=== PATIENT | female | born 1965 | race Caucasian/White ===

== ENCOUNTER → 2018-12-22 15:09 | Outpatient (CLI) | payer OTHER, SELFPAY ==
[2018-12-25 18:17] LABS: Rubeola Measles IgG < 25.00 AU/mL (< 25.00)
== END ==
PROVIDERS: PCP Physician Assistant; Visit Provider Physician Assistant
DX: Z20.828 Contact with and (suspected) exposure to other viral communicable diseases (principal)
CPT/HCPCS: 36415; 86765

== ENCOUNTER → 2019-04-07 08:39 | Outpatient (CLI) | payer OTHER, SELFPAY ==
[2019-04-07 09:58] LABS: Alanine Aminotransferase 30 IU/L (9-52); Albumin 5.1 g/dL (3.5-5.0); Albumin Globulin Ratio 1.5 (1.0-2.8); Alkaline Phosphatase 78 U/L (38-126); Aspartate Aminotransferase 31 IU/L (14-36); Bilirubin Total 0.7 mg/dL (0.2-1.3); Blood Urea Nitrogen 15 mg/dL (7-17); Calcium 10.1 mg/dL (8.4-10.2); Carbon Dioxide 29 mmol/L (22-32); Chloride 99 mmol/L (98-107); Cholesterol 210 mg/dL (140-199); Estimated Glomerular Filt Rate > 60.0 mL/min (>60); Globulin 3.5 g/dL (1.7-4.1); Glucose 114 mg/dL (70-100); HDL Cholesterol 70 mg/dL (40-60); HEMOLYSIS < 15 (0-50); LDL Cholesterol Calculated 111 mg/dL (<100); Potassium 4.2 mmol/L (3.4-5.1); Sodium 140 mmol/L (137-145); Total Protein 8.6 g/dL (6.3-8.2); Triglycerides 144 mg/dL (35-150)
[2019-04-07 10:00] LABS: Creatinine Urine Random 30.2 mg/dL
[2019-04-07 10:07] LABS: Microalbumi Creatinin Ratio Ur 19.8 ug/mg CR (<30); Microalbumin Urine Random < 0.6 mg/dL (0-1.6)
== END ==
PROVIDERS: PCP Physician Assistant; Visit Provider Physician Assistant
DX: I10 Essential (primary) hypertension (principal); Z87.448 Personal history of other diseases of urinary system; Z90.711 Acquired absence of uterus with remaining cervical stump
CPT/HCPCS: 36415; 80053; 80061; 82043; 82570

== ENCOUNTER → 2020-10-15 08:09 | Outpatient (CLI) | payer OTHER, SELFPAY ==
[2020-10-15 09:24] LABS: Add Manual Diff / Slide Review NO; Basophils Absolute Auto 100 /uL (0-100); Basophils Percent Auto 1.1 % (0-2); Eosinophils Absolute Auto 300 /uL (0-450); Eosinophils Percent Auto 5.7 % (2-4); Hematocrit 39.4 % (36-46); Hemoglobin 13.7 g/dL (12.0-16.0); Lymphocytes Absolute Auto 2100 /uL (1100-4500); Mean Corpuscular HGB Conc 34.9 % (30-36); Mean Corpuscular Hemoglobin 31.2 PG (26-34); Mean Corpuscular Volume 89.3 fL (80-100); Monocytes Absolute Auto 400 /uL (0-900); Monocytes Percent Auto 7.5 % (3-14); Neutrophils Absolute Auto 2000 /uL (1500-7000); Neutrophils Percent Auto 41.7 % (50-75); Platelet Count 281 X10^3/uL (150-400); Red Blood Cell Count 4.41 X10^6/uL (4.0-5.2); Red Cell Distribution Width 13.2 % (11.6-14.8); White Blood Cell Count 4.7 X10^3/uL (4.5-11.0)
[2020-10-15 09:36] LABS: Hemoglobin A1C% w Est Avg Glu 5.1 % (4.0-6.0)
[2020-10-15 10:27] LABS: Alanine Aminotransferase 22 IU/L (<35); Albumin 4.1 g/dL (3.5-5.0); Albumin Globulin Ratio 1.3 (1.0-2.8); Alkaline Phosphatase 75 U/L (38-126); Aspartate Aminotransferase 25 IU/L (14-36); BUN Creatinine Ratio 25.5 (6-22); Bilirubin Total 0.2 mg/dL (0.2-1.3); Blood Urea Nitrogen 12 mg/dL (7-17); Calcium 9.2 mg/dL (8.4-10.2); Carbon Dioxide 31 mmol/L (22-32); Chloride 103 mmol/L (98-107); Cholesterol 158 mg/dL (140-199); Estimated Glomerular Filt Rate > 60.0 mL/min (>60); Globulin 3.2 g/dL (1.7-4.1); Glucose 103 mg/dL (70-100); HDL Cholesterol 60 mg/dL (40-60); HEMOLYSIS < 15 (0-50); LDL Cholesterol Calculated 77 mg/dL (<100); Sodium 141 mmol/L (137-145); Total Protein 7.3 g/dL (6.3-8.2); Triglycerides 103 mg/dL (35-150)
[2020-10-15 10:40] LABS: Free T3, Triiodothyronine Free 3.76 pg/mL (2.77-5.27); Free T4, Direct Thyroxine 0.97 ng/dL (0.78-2.19)
[2020-10-15 11:33] LABS: Creatinine Urine Random 77.8 mg/dL; Protein (Total) Urine Random 6 mg/dL (0-12); Protein Creatinine Ratio Urine 0.07 GRAM/24H
[2020-10-15 11:44] LABS: Microalbumin Urine Random < 0.6 mg/dL (0-1.6)
== END ==
PROVIDERS: Referring Provider Nurse Practitioner; Visit Provider Nurse Practitioner
DX: Z00.00 Encounter for general adult medical examination without abnormal findings (principal); N05.9 Unspecified nephritic syndrome with unspecified morphologic changes; D70.9 Neutropenia, unspecified; D63.1 Anemia in chronic kidney disease; R80.9 Proteinuria, unspecified; I10 Essential (primary) hypertension; Z87.448 Personal history of other diseases of urinary system; N28.9 Disorder of kidney and ureter, unspecified; E78.5 Hyperlipidemia, unspecified; R73.9 Hyperglycemia, unspecified
CPT/HCPCS: 36415; 80053; 80061; 82043; 82570; 83036; 84156; 84439; 84443; 84481; 85025

== ENCOUNTER → 2022-01-15 12:36 | Outpatient (CLI) | payer OTHER, SELFPAY ==
[2022-01-15 13:03] LABS: Hematocrit 43.1 % (36-46); Hemoglobin 14.5 g/dL (12.0-16.0); Mean Corpuscular HGB Conc 33.7 % (30-36); Mean Corpuscular Hemoglobin 30.2 PG (26-34); Mean Corpuscular Volume 89.6 fL (80-100); Platelet Count 356 X10^3/uL (150-400); Red Blood Cell Count 4.81 X10^6/uL (4.0-5.2); Red Cell Distribution Width 13.5 % (11.6-14.8); White Blood Cell Count 7.1 X10^3/uL (4.5-11.0)
[2022-01-15 13:33] LABS: Alanine Aminotransferase 28 IU/L (<35); Albumin 4.5 g/dL (3.5-5.0); Albumin Globulin Ratio 1.6 (1.0-2.8); Alkaline Phosphatase 76 U/L (38-126); Aspartate Aminotransferase 28 IU/L (14-36); BUN Creatinine Ratio 35.2 (6-22); Bilirubin Total 0.4 mg/dL (0.2-1.3); Blood Urea Nitrogen 19 mg/dL (7-17); Calcium 9.1 mg/dL (8.4-10.2); Carbon Dioxide 29 mmol/L (22-32); Chloride 101 mmol/L (98-107); Cholesterol 196 mg/dL (140-199); Estimated Glomerular Filt Rate > 60 mL/min (>60); Globulin 2.9 g/dL (1.7-4.1); Glucose 98 mg/dL (70-100); HDL Cholesterol 73 mg/dL (40-60); HEMOLYSIS < 15 (0-50); LDL Cholesterol Calculated 83 mg/dL (<100); Potassium 4.4 mmol/L (3.4-5.1); Sodium 136 mmol/L (137-145); Total Protein 7.4 g/dL (6.3-8.2); Triglycerides 201 mg/dL (35-150)
[2022-01-15 13:49] LABS: Free T3, Triiodothyronine Free 3.52 pg/mL (2.77-5.27); Free T4, Direct Thyroxine 0.89 ng/dL (0.78-2.19)
[2022-01-15 14:03] LABS: Thyroid Stimulating Hormone 0.829 uIU/mL (0.47-4.68)
[2022-01-15 14:58] LABS: Creatinine Urine Random 144.3 mg/dL
[2022-01-15 15:05] LABS: Microalbumi Creatinin Ratio Ur 11.7 ug/mg CR (<30); Microalbumin Urine Random 1.7 mg/dL (0-1.6)
[2022-01-16 19:32] LABS: Hep C Virus Ab w/Reflex Quant NEGATIVE s/c (NEGATIVE)
== END ==
PROVIDERS: Referring Provider Nurse Practitioner; Visit Provider Nurse Practitioner
DX: R73.9 Hyperglycemia, unspecified (principal); E78.2 Mixed hyperlipidemia; N28.9 Disorder of kidney and ureter, unspecified; I10 Essential (primary) hypertension; Z00.00 Encounter for general adult medical examination without abnormal findings; Z11.59 Encounter for screening for other viral diseases
CPT/HCPCS: 36415; 80053; 80061; 82043; 82570; 84439; 84443; 84481; 85027; 86803

== ENCOUNTER 2022-03-21 14:30 | Outpatient (RCR) | payer OTHER, SELFPAY ==
--- NOTE | 2022-03-24 11:26 | ST.OPIE ---
Visit Care Team Role Provider Type CARLI Sam Attending Provider Advanced Airplane Pilot Family Provider Primary Care Provider Referring Provider Specialty: [facility] Practice Address: [address] [place] [address], [facility] Email: [email or web address] Speech-Language Pathology Initial Evaluation SKY CAP Adult Cognitive Linguistic Eval Start: 03/21/22 15:04 Freq: Status: Active Protocol: Document 03/21/22 14:30 LNK (Rec: 03/24/22 11:26 LNK [id number]) Adult Cognitive Linguistic Evaluation Session Time Visit Start Time 14:30 Visit Stop Time 15:30 Total Visit Minutes [address] Jennifer Lowe Reason for Referral s/p CVA Setting Assessment Location Outpatient Care Visit Type Note Type Initial evaluation Patient Information Identification Type Name,Date of Patient History Pt was seen for an evaluation following a possible acute infarct in the left dosal bill. Pt was treated at [facility] in [place]. Additional white matter changes were observed in MRI. Pt was discharged from [facility] 10/28/21. Pt presents to determine what, if any, affects from the CVA are present in speech/language or cognition. Previous Therapy Previous Speech-Language Therapy No Subjective Patient Report Pt presented as alert, oriented with no obvious speech/language deficits. Assessment Oral Motor Examination Completed No: Informal observation of OM structures/function as WNL Informal Assessment Receptive Language Normal Yes Expressive Language Normal Yes Pragmatic Language Normal Yes Speech Normal Yes Cognition Normal Yes Formal Assessment Standardized Test/Screener Type [facility] Mental Status (UMS) Administration Complete Results Pt reported no word finding difficulty, no slurred speech and no halting speaking pattern. After a brief conversation with interview questions regarding presentation or lack of pt's perceived difficulties, the SLUMS was administered. The results of the SLUMS indicated a score of 30/30. She presented with story memory, mental calculation, divergent naming, clock drawing and delayed memory to be WNL. Conversational speech/language indicated no deficits. Findings/Results Language Function Within normal limits Cognitive Function Within normal limits Plan of Care Speech-Language Treatment No Patient/Caregiver Education Described results of evaluation,Patient expressed understanding of evaluation, Patient expressed agreement with goals and treatment plans Discharge Recommendations Home
== END 2022-03-26 09:30 ==
LOC: SP 14:30
PROVIDERS: Family Provider Nurse Practitioner; PCP Nurse Practitioner; Referring Provider Nurse Practitioner; Visit Provider Nurse Practitioner
DX: I63.9 Cerebral infarction, unspecified (principal); R41.89 Other symptoms and signs involving cognitive functions and awareness
CPT/HCPCS: 92523

== ENCOUNTER 2022-04-30 14:30 | Outpatient (RCR) | payer OTHER, SELFPAY ==
--- NOTE | 2022-03-26 14:25 | PT.OIE ---
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 Elevated blood sugar Foot pain (~2004) Headache (~1999) Hyperlipidemia Kidney disease (~1993) Left pontine stroke Ovarian cyst (~2017) Proteinuria (~1993) Shoulder pain (~2017) Skin mole Stressful workplace Vertigo (~2016) Past Surgical History (Last Reviewed 02/13/22 @ 10:52 by CARLI Sam) Anesthesia History of bunionectomy (~2004) History of section History of partial hysterectomy (~2017) Status post biopsy of kidney Visit Care Team Role Provider Type CARLI Sam Attending Provider Advanced Cemetery Manager Family Provider Primary Care Provider Referring Provider Specialty: [facility] Practice Address: [address] [place] [address] Email: [email or web address] Physical Therapy Initial Evaluation PT-OP-A Visit Information Start: 03/25/22 13:22 Freq: Status: Active Protocol: Document 03/26/22 13:00 [facility] (Rec: 03/26/22 14:23 [facility] [id number]) Out-Patient Physical Therapy Visit Information Visit Information Visit Type Initial Evaluation Visit Start Time 13:00 Visit Stop Time 13:55 Total Visit Minutes 55 Visit Number 1 Number of AUTOMATIC FURNACE OPERATOR Visits 0 PT-OP-B Current Condition Start: 03/25/22 13:22 Freq: Status: Active Protocol: Document 03/26/22 13:00 [facility] (Rec: 03/26/22 14:23 [facility] [id number]) Current Condition History of Current Condition Onset Date October Current Complaints R knee History of Current Condition Pt had a mild stroke in October ( notes it was mild). She had an injury to her R Knee after falling donw a hill in [place] when having the stroke. They did Xrays and US and nothing looks broken, but it was swollen and she had difficulty wt bearing for a month. It started acting up more the past couple days. It throws off her gait. It seems best when she walks. [place]25 [place] and tried 2 miles but her knee gets more painful. Denies any lingering affects from the stroke. She saw NETWORK MANAGER for eval and was DC. Pt was diagnosed w/vertigo 4-5 years ago and did PT and did self leila at home to maintain. Since CVA, she has had inc dizziness and when seh bends over or occ when rolling in bed. She has tried her self maneuver and it has helped. She has bunions on her feet and has history of surgery of L foot. She has had some knee pain in R knee prior to this. R bunion isn't painful. Pt has diagnosis of fibromyalgia and has pain in upper back and does chiro, massage and stretching by the ocean and that all helps a lot. It was really dehibilitating until seeing the chiro. Prior to this, pt was walking 2 miles a day to walk dog and go to the beach. Pt is in a car a lot and having to walk in the [place]. Work is currently working on a safety plan for her to return. She typically wears tennis shoes and wears a lot of shoe-boots (like jackie shoes). Feels like knee cap shifts, and that catches and is painful when this happens and brace helps this. Notes occ when turning, loses balance but unsure if that is dizzines or knee. has been doing some [facility] stroke rehab and has trouble w/EC balance. Pt's initial symptoms of stroke were paranoia, confusion, vision changes. Pt feels like it all resolved. Pt fell during CVA when she was concerned she was being followed and hid behind a tree and fell down a hill. New callus on lat foot around 5th met head on L. It is painful when first set on it and it feels like a pin and a really sharp pain. Prior Treatments and Tests Xray and US; wears brace( elastic sleeve) Treatment Goals Patient/Caregiver Goals Get back to normal walking ( improve gait pattern and return to 2 miles); Figure out if more is going on with knee and if she needs to see a specialist. PT-OP-C Subjective Start: 03/25/22 13:22 Freq: Status: Active Protocol: Document 03/26/22 13:00 [facility] (Rec: 03/26/22 14:23 [facility] [id number]) Patient Questionnaires Lower Extremity Functional Scale LEFS Score 61/80 OP-PT Pain Assessment Location R knee Pain Location Details R med knee Intensity 9 Scale Used worst Description Sharp Description- Other lock up Frequency Intermittent Other Pain Aggravating Factors uneven ground, hills, walking too long, squatting, sit long then get up Pain Alleviating Factors Cold Other Pain Alleviating Factors daily walk PT-OP-D Balance Start: 03/25/22 13:22 Freq: Status: Active Protocol: Document 03/26/22 13:00 [facility] (Rec: 03/26/22 14:23 [facility] [id number]) Balance Tests Single Limb Standing Single Limb- Right >30 sec EO, EC 2 sec Single Limb- Left >30 sec EO, EC 5sec PT-OP-F Manual Assessment Start: 03/26/22 14:23 Freq: Status: Active Protocol: Document 03/26/22 13:00 [facility] (Rec: 03/26/22 14:25 [facility] [id number]) Manual Assessments Soft Tissue Assessment Soft Tissue Mobility Assessment tenderness med patella region only Other Manual Assessments Other Manual Assessments B rear foot valgus and rotaion of R remure and tibia, bunion R, collapsed arches B, hyperextends in standin PT-OP-G Mobility & Gait Start: 03/25/22 13:22 Freq: Status: Active Protocol: Document 03/26/22 13:00 [facility] (Rec: 03/26/22 14:23 [facility] [id number]) OP Gait Assessment Comments Gait Comments Adducts B and inc pronation B PT-OP-J Posture/Palpation/Skin Start: 03/25/22 13:22 Freq: Status: Active Protocol: Document 03/26/22 13:00 [facility] (Rec: 03/26/22 14:23 [facility] [id number]) Posture Evaluation Donnie Postural Classification System Lumbar Protective Mechanism Left AP 1 Lumbar Protective Mechanism Right AP 3 Lumbar Protective Mechanism Left PA 2 Lumbar Protective Mechanism Right PA 2 PT-OP-K Range of Motion Start: 03/26/22 14:23 Freq: Status: Active Protocol: Document 03/26/22 13:00 [facility] (Rec: 03/26/22 14:25 [facility] [id number]) Knee Goniometric Range of Motion Knee Right Flexion Active (degrees) 140 Extension Active (degrees) 0 Comments tight w/flex Left Flexion Active (degrees) 142 Hyper-Extension Active 4 PT-OP-L Special Tests Start: 03/25/22 13:22 Freq: Status: Active Protocol: Document 03/26/22 13:00 [facility] (Rec: 03/26/22 14:23 [facility] [id number]) Special Tests Knee Special Tests Hughston Pica Test Test Results R positive for pain-not notable for clicking though Straight Leg Raise Test Results 95 deg L, 92 R Preston Test Results WNL B Susan's Test Test Results neg R Cornelius's Compression Test Results neg R Apley's Compression Test Results neg R Thessaly Test 20 Degrees Test Results didn't hurt-but feels weak like it could click out Carlos Test Test Results neg R Rich Chondromalacia Test Results no pain w/ext Todd's Test Results neg R Posterior Draw Test Results neg R Varus- 25 Degrees Test Results neg R Valgus- 25 Degrees Test Results neg R PT-OP-M Strength Start: 03/25/22 13:22 Freq: Status: Active Protocol: Document 03/26/22 13:00 [facility] (Rec: 03/26/22 14:23 [facility] [id number]) Hip Strength Hip Manual Muscle Testing Right Flexion (L2) 4- Good- Extension (S1) 4 Good Abduction 4 Good Adduction 4 Good External Rotation 4- Good- Internal Rotation 4+ Good+ Comments pain IR Left Flexion (L2) 4- Good- Extension (S1) 4 Good Abduction 4 Good Adduction 5 Normal External Rotation 4- Good- Internal Rotation 4+ Good+ Knee Strength Knee Manual Muscle Testing Right Flexion (S2) 5 Normal Extension (L3) 4 Good Left Flexion (S2) 5 Normal Extension (L3) 4 Good Ankle/Foot Strength Ankle and Foot Manual Muscle Testing Right Dorsiflexion (L4) 5 Normal Plantarflexion (S1) 5 Normal Comments more difficult but abl eto do 20 heel raises Left Dorsiflexion (L4) 5 Normal Plantarflexion (S1) 5 Normal Comments 20 heel raises B PT-OP-Q Treatments Start: 03/25/22 13:22 Freq: Status: Active Protocol: Document 03/26/22 13:00 [facility] (Rec: 03/26/22 14:23 [facility] [id number]) Self-Care/Home Management Treatment Education Other Education Edu on anatomy of knee and what plica is and how that could be what was injured based on location and pain w/ testing. Edu that ligaments feel stable. Discussed how PT can help manually and w/ exercises to stabilize PT-OP-T Assessment and Plan Start: 03/25/22 13:22 Freq: Status: Active Protocol: Document 03/26/22 13:00 [facility] (Rec: 03/26/22 14:23 [facility] [id number]) Physical Therapy Assessment Goals activity Missile Technician Goal (LTG) Pt will be able to stand comfortably after sitting for long periods and w/squatting LTG Duration 05/21 strength Short Term Goal (STG) Pt will be indep w/HEP STG Duration 04/26 Missile Technician Goal (LTG) Pt will score at lest 3/5 LPm and 5/5 on all LE MMT to show imrpoved strengtha nd stability in order to dec instance of pain. LTG Duration 05/21 walking Short Term Goal (STG) Pt will be able to inc walking to 1 mile w/o inc pain. STG Duration 04/26 Missile Technician Goal (LTG) Pt will be able her typical 2 mile walks and walk on uneven surfaces LTG Duration 05/21 Assessment Summary Assessment Pt presents w/R knee pain after a fall when she had a mild CVA. She has history of some mild knee pain but it is worse now and it limits her walking distance and she is concerned about her return to work on uneven surfaces. She has been exercising daily and very motivated to follow PT exercises to get better. She did show pain along palpation by med plica and pain w/ Hughston's plica test which indicate possible plica pathology. She is weak and shows gait deviations which may be affecting her pain especially w/walking. Pt would beneift from PT to improve gait and overall mobility. Physical Therapy Plan Frequency and Duration Frequency of Treatment 1-2x/week Duration of treatment (weeks) 8 Plan of Care Start Date 03/26/22 Plan of Care End Date 05/21/22 Therapeutic Interventions Therapeutic Interventions Aquatic Therapy,Balance Training,Gait Training,Home Exercise Program,Joint Mobilizations,Manual Therapy, Neuromuscular Re-education, Patient/Caregiver Education, Self-Care/Home Management,Soft Tissue Mobilization,Taping, Therapeutic Activities, Therapeutic Exercises Modalities Cold Pack/Ice Massage,Electric Stimulation,Hot Packs, Infrared Therapy,Ultrasound Next Visit Focus/Plan Next Note Type Treatment Note Next Visit Plan mini squat training, KT tape for swelling, sidestep w/tband , bridge, glute strenthening for HEP, manual for tibfem mobility
--- NOTE | 2022-03-26 14:26 | PT.OPPOC ---
Physical, Occupational & Speech Therapy At [facility] Current Diagnoses Pain in right knee (03/26/22) Other symptoms and signs involving the musculoskeletal system (03/26/22) Visit Care Team Role Provider Type CARLI Sam Attending Provider Advanced Drive Shaft And Steering Post Repairer Family Provider Primary Care Provider Referring Provider Specialty: Family Practice Address: [address] [place] [address], [facility] Email: [email or web address] Plan Of Care PT-OP-T Assessment and Plan Start: 03/25/22 13:22 Freq: Status: Active Protocol: Document 03/26/22 13:00 [facility] (Rec: 03/26/22 14:23 [facility] [id number]) Physical Therapy Assessment Goals activity Senior Care Goal (LTG) Pt will be able to stand comfortably after sitting for long periods and w/squatting LTG Duration 05/21 strength Short Term Goal (STG) Pt will be indep w/HEP STG Duration 04/26 Senior Care Goal (LTG) Pt will score at lest 3/5 LPm and 5/5 on all LE MMT to show imrpoved strengtha nd stability in order to dec instance of pain. LTG Duration 05/21 walking Short Term Goal (STG) Pt will be able to inc walking to 1 mile w/o inc pain. STG Duration 04/26 Maintainer Sewer And Waterworks Goal (LTG) Pt will be able her typical 2 mile walks and walk on uneven surfaces LTG Duration 05/21 Assessment Summary Assessment Pt presents w/R knee pain after a fall when she had a mild CVA. She has history of some mild knee pain but it is worse now and it limits her walking distance and she is concerned about her return to work on uneven surfaces. She has been exercising daily and very motivated to follow PT exercises to get better. She did show pain along palpation by med plica and pain w/ Hughston's plica test which indicate possible plica pathology. She is weak and shows gait deviations which may be affecting her pain especially w/walking. Pt would beneift from PT to improve gait and overall mobility. Physical Therapy Plan Frequency and Duration Frequency of Treatment 1-2x/week Duration of treatment (weeks) 8 Plan of Care Start Date 03/26/22 Plan of Care End Date 05/21/22 Therapeutic Interventions Therapeutic Interventions Aquatic Therapy,Balance Training,Gait Training,Home Exercise Program,Joint Mobilizations,Manual Therapy, Neuromuscular Re-education, Patient/Caregiver Education, Self-Care/Home Management,Soft Tissue Mobilization,Taping, Therapeutic Activities, Therapeutic Exercises, Vestibular Rehabilitation Modalities Cold Pack/Ice Massage,Electric Stimulation,Hot Packs, Infrared Therapy,Ultrasound Next Visit Focus/Plan Next Note Type Treatment Note Next Visit Plan mini squat training, KT tape for swelling, sidestep w/tband , bridge, glute strenthening for HEP, manual for tibfem mobility Plan of Care Dates Plan of Care Start Date 03/26/22 Plan of Care End Date 05/21/22 Electronically Signed by: Lidia Ashton, PT 03/26/22 [id number] If you are in agreement with this Plan of Care, please return a signed and dated copy. I have reviewed this Plan of Care and certify that the skilled therapy services above are required to meet the patient?s needs. Physician Signature Date Printed Name and Credentials Clinical Instructor Signature Printed Name and Credentials
--- NOTE | 2022-03-31 15:52 | PT.OTN ---
Current Diagnoses Pain in right knee (03/31/22) Other symptoms and signs involving the musculoskeletal system (03/31/22) Physical Therapy Treatment Note PT-OP-A Visit Information Start: 03/25/22 13:22 Freq: Status: Active Protocol: Document 03/31/22 14:41 AMB (Rec: 03/31/22 15:52 AMB [id number]) Out-Patient Physical Therapy Visit Information Visit Information Visit Type Treatment Note Visit Start Time 14:30 Visit Stop Time 15:15 Total Visit Minutes 45 Visit Number 2 PT-OP-B Current Condition Start: 03/25/22 13:22 Freq: Status: Active Protocol: Document 03/26/22 13:00 LR (Rec: 03/26/22 14:23 [facility] [id number]) Current Condition History of Current Condition Onset Date October Current Complaints R knee History of Current Condition Pt had a mild stroke in October ( notes it was mild). She had an injury to her R Knee after falling donw a hill in [place] when having the stroke. They did Xrays and US and nothing looks broken, but it was swollen and she had difficulty wt bearing for a month. It started acting up more the past couple days. It throws off her gait. It seems best when she walks. [place] walks 5x/ week on the beach [place] .25 mile and tried 2 miles but her knee gets more painful. Denies any lingering affects from the stroke. 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 Pt was diagnosed w/vertigo 4-5 years ago and did PT and did self leila at home to maintain. Since CVA, she has had inc dizziness and when seh bends over or occ when rolling in bed. She has tried her self maneuver and it has helped. She has bunions on her feet and has history of surgery of L foot. She has had some knee pain in R knee prior to this. R bunion isn't painful. Pt has diagnosis of fibromyalgia and has pain in upper back and does chiro, massage and stretching by the ocean and that all helps a lot. It was really dehibilitating until seeing the chiro. Prior to this, pt was walking 2 miles a day to walk dog and go to the beach. Pt is in a car a lot and having to walk in the [place]. Work is currently working on a safety plan for her to return. She typically wears tennis shoes and wears a lot of shoe-boots (like jackie shoes). Feels like knee cap shifts, and that catches and is painful when this happens and brace helps this. Notes occ when turning, loses balance but unsure if that is dizzines or knee. has been doing some Youtube stroke rehab and has trouble w/EC balance. Pt's initial symptoms of stroke were paranoia, confusion, vision changes. Pt feels like it all resolved. Pt fell during CVA when she was concerned she was being followed and hid behind a tree and fell down a hill. New callus on lat foot around 5th met head on L. It is painful when first set on it and it feels like a pin and a really sharp pain. Prior Treatments and Tests Xray and US; wears brace( elastic sleeve) Treatment Goals Patient/Caregiver Goals Get back to normal walking ( improve gait pattern and return to 2 miles); Figure out if more is going on with knee and if she needs to see a specialist. PT-OP-C Subjective Start: 03/25/22 13:22 Freq: Status: Active Protocol: Document 03/31/22 14:41 AMB (Rec: 03/31/22 15:52 AMB [id number]) OP-PT Subjective Patient Comments Patient Comments Pt woke up feeling pretty stiff this morning. PT-OP-D Balance Start: 03/25/22 13:22 Freq: Status: Active Protocol: Document 03/26/22 13:00 [facility] (Rec: 03/26/22 14:23 [facility] [id number]) Balance Tests Single Limb Standing Single Limb- Right >30 sec EO, EC 2 sec Single Limb- Left >30 sec EO, EC 5sec PT-OP-F Manual Assessment Start: 03/26/22 14:23 Freq: Status: Active Protocol: Document 03/26/22 13:00 [facility] (Rec: 03/26/22 14:25 [facility] [id number]) Manual Assessments Soft Tissue Assessment Soft Tissue Mobility Assessment tenderness med patella region only Other Manual Assessments Other Manual Assessments B rear foot valgus and rotaion of R remure and tibia, bunion R, collapsed arches B, hyperextends in standin PT-OP-G Mobility & Gait Start: 03/25/22 13:22 Freq: Status: Active Protocol: Document 03/26/22 13:00 [facility] (Rec: 03/26/22 14:23 [facility] [id number]) OP Gait Assessment Comments Gait Comments Adducts B and inc pronation B PT-OP-J Posture/Palpation/Skin Start: 03/25/22 13:22 Freq: Status: Active Protocol: Document 03/26/22 13:00 [facility] (Rec: 03/26/22 14:23 [facility] [id number]) Posture Evaluation [facility] Postural Classification System Lumbar Protective Mechanism Left AP 1 Lumbar Protective Mechanism Right AP 3 Lumbar Protective Mechanism Left PA 2 Lumbar Protective Mechanism Right PA 2 PT-OP-K Range of Motion Start: 03/26/22 14:23 Freq: Status: Active Protocol: Document 03/26/22 13:00 [facility] (Rec: 03/26/22 14:25 [facility] [id number]) Knee Goniometric Range of Motion Knee Right Flexion Active (degrees) 140 Extension Active (degrees) 0 Comments tight w/flex Left Flexion Active (degrees) 142 Hyper-Extension Active 4 PT-OP-L Special Tests Start: 03/25/22 13:22 Freq: Status: Active Protocol: Document 03/26/22 13:00 [facility] (Rec: 03/26/22 14:23 [facility] [id number]) Special Tests Knee Special Tests Hughston Pica Test Test Results R positive for pain-not notable for clicking though Straight Leg Raise Test Results 95 deg L, 92 R Preston Test Results WNL B Susan's Test Test Results neg R Cornelius's Compression Test Results neg R Apley's Compression Test Results neg R Thessaly Test 20 Degrees Test Results didn't hurt-but feels weak like it could click out Carlos Test Test Results neg R Rcih Chondromalacia Test Results no pain w/ext Todd's Test Results neg R Posterior Draw Test Results neg R Varus- 25 Degrees Test Results neg R Valgus- 25 Degrees Test Results neg R PT-OP-M Strength Start: 03/25/22 13:22 Freq: Status: Active Protocol: Document 03/26/22 13:00 [facility] (Rec: 03/26/22 14:23 [facility] [id number]) Hip Strength Hip Manual Muscle Testing Right Flexion (L2) 4- Good- Extension (S1) 4 Good Abduction 4 Good Adduction 4 Good External Rotation 4- Good- Internal Rotation 4+ Good+ Comments pain IR Left Flexion (L2) 4- Good- Extension (S1) 4 Good Abduction 4 Good Adduction 5 Normal External Rotation 4- Good- Internal Rotation 4+ Good+ Knee Strength Knee Manual Muscle Testing Right Flexion (S2) 5 Normal Extension (L3) 4 Good Left Flexion (S2) 5 Normal Extension (L3) 4 Good Ankle/Foot Strength Ankle and Foot Manual Muscle Testing Right Dorsiflexion (L4) 5 Normal Plantarflexion (S1) 5 Normal Comments more difficult but abl eto do 20 heel raises Left Dorsiflexion (L4) 5 Normal Plantarflexion (S1) 5 Normal Comments 20 heel raises B PT-OP-Q Treatments Start: 03/25/22 13:22 Freq: Status: Active Protocol: Document 03/31/22 14:41 AMB (Rec: 03/31/22 15:52 AMB [id number]) Cardio Equipment Recumbent Bicycle Duration (Minutes) 5 Resistance 5 Seat Position 2 Gym Equipment Shuttle Recovery Unilateral Squats Details R Resistance 62 Shuttle Recovery Platform Stable Reps/Time 2x15 Therapeutic Exercises Supine Exercises SLR Reps/Minutes 10 Comments quad set first, avoid genu recurvatum Sidelying Exercises Abductor Reps/Minutes 2x10 Adductor Reps/Minutes 2x10 Manual Therapy Treatment Soft Tissue Mobilization medial knee Mobilization Type Cross-Friction,Rolling Intensity/Depth Moderate Body Position Hooklying Joint Mobilizations Tibiofemoral Direction AP Grade III Taping 1 Body Location Medial knee Type of Tape Kinesio Tape Comments I strip, Medial from tibial tuberosity to superior to patella PT-OP-T Assessment and Plan Start: 03/25/22 13:22 Freq: Status: Active Protocol: Document 03/31/22 14:41 AMB (Rec: 03/31/22 15:52 AMB [id number]) Physical Therapy Assessment Goals activity Senior Care Goal (LTG) Pt will be able to stand comfortably after sitting for long periods and w/squatting LTG Duration 05/21 strength Short Term Goal (STG) Pt will be indep w/HEP STG Duration 04/26 Senior Care Goal (LTG) Pt will score at lest 3/5 LPm and 5/5 on all LE MMT to show imrpoved strengtha nd stability in order to dec instance of pain. LTG Duration 05/21 walking Short Term Goal (STG) Pt will be able to inc walking to 1 mile w/o inc pain. STG Duration 04/26 Photography Spotter Goal (LTG) Pt will be able her typical 2 mile walks and walk on uneven surfaces LTG Duration 05/21 Assessment Summary Assessment Pt tolerated strengthening exercises well, was aware of medial knee discomfort with adductor strengthening, will benefit from continued progression of glute/hip strengthening. Physical Therapy Plan Frequency and Duration Frequency of Treatment 1-2x/week Duration of treatment (weeks) 8 Plan of Care Start Date 03/26/22 Plan of Care End Date 05/21/22 Next Visit Focus/Plan Next Note Type Treatment Note Next Visit Plan Reassess KT tape, mini squat training, sidestep w/tband, bridge, glute strenthening for HEP, manual for tibfem mobility
--- NOTE | 2022-04-02 12:10 | PT.OTN ---
Current Diagnoses Pain in right knee (04/02/22) Other symptoms and signs involving the musculoskeletal system (04/02/22) Physical Therapy Treatment Note PT-OP-A Visit Information Start: 03/25/22 13:22 Freq: Status: Active Protocol: Document 04/02/22 11:19 [facility] (Rec: 04/02/22 12:10 [facility] [id number]) Out-Patient Physical Therapy Visit Information Visit Information Visit Type Treatment Note Visit Start Time 11:20 Visit Stop Time 12:00 Total Visit Minutes 40 Visit Number 3 Number of BUNGHOLE BORER Visits 0 PT-OP-B Current Condition Start: 03/25/22 13:22 Freq: Status: Active Protocol: Document 03/26/22 13:00 [facility] (Rec: 03/26/22 14:23 [facility] [id number]) Current Condition History of Current Condition Onset Date October Current Complaints R knee History of Current Condition Pt had a mild stroke in October ( notes it was mild). She had an injury to her R Knee after falling donw a hill in [place] when having the stroke. They did Xrays and US and nothing looks broken, but it was swollen and she had difficulty wt bearing for a month. It started acting up more the past couple days. It throws off her gait. It seems best when she walks. She walks 5x/ week on the beach [place] .25 mile and tried 2 miles but her knee gets more painful. Denies any lingering affects from the stroke. She saw REAL ESTATE PROFESSIONAL for eval and was DC. Pt was diagnosed w/vertigo 4-5 years ago and did PT and did self leila at home to maintain. Since CVA, she has had inc dizziness and when seh bends over or occ when rolling in bed. She has tried her self maneuver and it has helped. She has bunions on her feet and has history of surgery of L foot. She has had some knee pain in R knee prior to this. R bunion isn't painful. Pt has diagnosis of fibromyalgia and has pain in upper back and does chiro, massage and stretching by the ocean and that all helps a lot. It was really dehibilitating until seeing the chiro. Prior to this, pt was walking 2 miles a day to walk dog and go to the beach. Pt is in a car a lot and [place] walk [place] Work is currently working on a safety plan for her to return. She typically wears tennis shoes and wears a lot of shoe-boots (like jackie shoes). Feels like knee cap shifts, and that catches and is painful when this happens and brace helps this. Notes occ when turning, loses balance but unsure if that is dizzines or knee. has been doing some [employer] stroke rehab and has trouble w/EC balance. Pt's initial symptoms of stroke were paranoia, confusion, vision changes. Pt feels like it all resolved. Pt fell during CVA when she was concerned she was being followed and hid behind a tree and fell down a hill. New callus on lat foot around 5th met head on L. It is painful when first set on it and it feels like a pin and a really sharp pain. Prior Treatments and Tests Xray and US; wears brace( elastic sleeve) Treatment Goals Patient/Caregiver Goals Get back to normal walking ( improve gait pattern and return to 2 miles); Figure out if more is going on with knee and if she needs to see a specialist. PT-OP-C Subjective Start: 03/25/22 13:22 Freq: Status: Active Protocol: Document 04/02/22 11:19 [facility] (Rec: 04/02/22 12:10 [facility] [id number]) OP-PT Subjective Patient Comments Patient Comments Pt reprots feeling okay w/ exercises. [place] okay after last session and feels it was helpful PT-OP-D Balance Start: 03/25/22 13:22 Freq: Status: Active Protocol: Document 03/26/22 13:00 [facility] (Rec: 03/26/22 14:23 [facility] [id number]) Balance Tests Single Limb Standing Single Limb- Right >30 sec EO, EC 2 sec Single Limb- Left >30 sec EO, EC 5sec PT-OP-F Manual Assessment Start: 03/26/22 14:23 Freq: Status: Active Protocol: Document 03/26/22 13:00 [facility] (Rec: 03/26/22 14:25 [facility] [id number]) Manual Assessments Soft Tissue Assessment Soft Tissue Mobility Assessment tenderness med patella region only Other Manual Assessments Other Manual Assessments B rear foot valgus and rotaion of R remure and tibia, bunion R, collapsed arches B, hyperextends in standin PT-OP-G Mobility & Gait Start: 03/25/22 13:22 Freq: Status: Active Protocol: Document 03/26/22 13:00 [facility] (Rec: 03/26/22 14:23 [facility] [id number]) OP Gait Assessment Comments Gait Comments Adducts B and inc pronation B PT-OP-J Posture/Palpation/Skin Start: 03/25/22 13:22 Freq: Status: Active Protocol: Document 03/26/22 13:00 [facility] (Rec: 03/26/22 14:23 [facility] [id number]) Posture Evaluation [facility] Postural Classification System Lumbar Protective Mechanism Left AP 1 Lumbar Protective Mechanism Right AP 3 Lumbar Protective Mechanism Left PA 2 Lumbar Protective Mechanism Right PA 2 PT-OP-K Range of Motion Start: 03/26/22 14:23 Freq: Status: Active Protocol: Document 03/26/22 13:00 [facility] (Rec: 03/26/22 14:25 [facility] [id number]) Knee Goniometric Range of Motion Knee Right Flexion Active (degrees) 140 Extension Active (degrees) 0 Comments tight w/flex Left Flexion Active (degrees) 142 Hyper-Extension Active 4 PT-OP-L Special Tests Start: 03/25/22 13:22 Freq: Status: Active Protocol: Document 03/26/22 13:00 [facility] (Rec: 03/26/22 14:23 [facility] [id number]) Special Tests Knee Special Tests Hughston Pica Test Test Results R positive for pain-not notable for clicking though Straight Leg Raise Test Results 95 deg L, 92 R Preston Test Results WNL B Susan's Test Test Results neg R Cornelius's Compression Test Results neg R Apley's Compression Test Results neg R Thessaly Test 20 Degrees Test Results didn't hurt-but feels weak like it could click out Carlos Test Test Results neg R Rich Chondromalacia Test Results no pain w/ext Todd's Test Results neg R Posterior Draw Test Results neg R Varus- 25 Degrees Test Results neg R Valgus- 25 Degrees Test Results neg R PT-OP-M Strength Start: 03/25/22 13:22 Freq: Status: Active Protocol: Document 03/26/22 13:00 [facility] (Rec: 03/26/22 14:23 [facility] [id number]) Hip Strength Hip Manual Muscle Testing Right Flexion (L2) 4- Good- Extension (S1) 4 Good Abduction 4 Good Adduction 4 Good External Rotation 4- Good- Internal Rotation 4+ Good+ Comments pain IR Left Flexion (L2) 4- Good- Extension (S1) 4 Good Abduction 4 Good Adduction 5 Normal External Rotation 4- Good- Internal Rotation 4+ Good+ Knee Strength Knee Manual Muscle Testing Right Flexion (S2) 5 Normal Extension (L3) 4 Good Left Flexion (S2) 5 Normal Extension (L3) 4 Good Ankle/Foot Strength Ankle and Foot Manual Muscle Testing Right Dorsiflexion (L4) 5 Normal Plantarflexion (S1) 5 Normal Comments more difficult but abl eto do 20 heel raises Left Dorsiflexion (L4) 5 Normal Plantarflexion (S1) 5 Normal Comments 20 heel raises B PT-OP-Q Treatments Start: 03/25/22 13:22 Freq: Status: Active Protocol: Document 04/02/22 11:19 [facility] (Rec: 04/02/22 12:10 [facility] [id number]) Cardio Equipment Recumbent Bicycle Duration (Minutes) 5 Resistance 5 Seat Position 2 Gym Equipment Shuttle Recovery Unilateral Squats Details R Resistance 62 Shuttle Recovery Platform Stable Reps/Time x15 Therapeutic Exercises Supine Exercises bridge Supine Exercise Name w/alt march-cues for pelvis level Side bilateral Reps/Minutes 10 ea (after 3 bridge neutral) SLR Supine Exercise Name cues for core Side bilateral Reps/Minutes 15 Comments quad set first, avoid genu recurvatum Sidelying Exercises Abductor Side bilateral Reps/Minutes 2x10 Adductor Side bilateral Reps/Minutes 2x10 Standing Exercises mini squat Side bilateral Reps/Minutes 15 Comments at bar cues for knee and back position sidestep Side bilateral Equipment Used L1 Reps/Minutes 20ft ea Manual Therapy Treatment Soft Tissue Mobilization adductors Body Location R Mobilization Type Rolling Intensity/Depth Moderate medial knee Mobilization Type Cross-Friction,Rolling Intensity/Depth Moderate Body Position Hooklying Joint Mobilizations Tibiofemoral Comments PA & IR FM PT-OP-T Assessment and Plan Start: 03/25/22 13:22 Freq: Status: Active Protocol: Document 04/02/22 11:19 [facility] (Rec: 04/02/22 12:10 [facility] [id number]) Physical Therapy Assessment Goals activity Irrigation Pump Installer Goal (LTG) Pt will be able to stand comfortably after sitting for long periods and w/squatting LTG Duration 12/7 strength Short Term Goal (STG) Pt will be indep w/HEP STG Duration 04/26 Alf Goal (LTG) Pt will score at lest 3/5 LPm and 5/5 on all LE MMT to show imrpoved strengtha nd stability in order to dec instance of pain. LTG Duration 05/21 walking Short Term Goal (STG) Pt will be able to inc walking to 1 mile w/o inc pain. STG Duration 04/26 Alf Goal (LTG) Pt will be able her typical 2 mile walks and walk on uneven surfaces LTG Duration 05/21 Assessment Summary Assessment Pt required cues for core w/ SLR and for body position during abd. Cues for new exercises but pt did well and had no c/o pain. Physical Therapy Plan Frequency and Duration Frequency of Treatment 1-2x/week Duration of treatment (weeks) 8 Plan of Care Start Date 03/26/22 Plan of Care End Date 05/21/22 Next Visit Focus/Plan Next Note Type Treatment Note Next Visit Plan KT tape again, review exercise , manual for dec knee pain
--- NOTE | 2022-04-07 15:48 | PT.OTN ---
Current Diagnoses Pain in right knee (04/07/22) Other symptoms and signs involving the musculoskeletal system (04/07/22) Physical Therapy Treatment Note PT-OP-A Visit Information Start: 03/25/22 13:22 Freq: Status: Active Protocol: Document 04/07/22 14:37 AMB (Rec: 04/07/22 15:48 AMB [id number]) Out-Patient Physical Therapy Visit Information Visit Information Visit Type Treatment Note Visit Start Time 14:35 Visit Stop Time 15:15 Total Visit Minutes 40 Visit Number 4 Number of ALL ROUND [employer]CHER Visits 0 PT-OP-B Current Condition Start: 03/25/22 13:22 Freq: Status: Active Protocol: Document 03/26/22 13:00 LR (Rec: 03/26/22 14:23 [facility] [id number]) Current Condition History of Current Condition Onset Date October Current Complaints R knee History of Current Condition Pt had a mild stroke in October ( notes it was mild). She had an injury to her R Knee after falling donw a hill in [place] when having the stroke. They did Xrays and US and nothing looks broken, but it was swollen and she had difficulty wt bearing for a month. It started acting up more the past couple days. It throws off her gait. It seems best when she walks. [place] 5x/ week on the beach [place] .25 mile and tried 2 miles but her knee gets more painful. Denies any lingering affects from the stroke. She saw [employer] for eval and was DC. Pt was diagnosed w/vertigo 4-5 years ago and did PT and did self leila at home to maintain. Since CVA, she has had inc dizziness and when seh bends over or occ when rolling in bed. She has tried her self maneuver and it has helped. She has bunions on her feet and has history of surgery of L foot. She has had some knee pain in R knee prior to this. R bunion isn't painful. Pt has diagnosis of fibromyalgia and has pain in upper back and does chiro, massage and stretching by the ocean and that all helps a lot. It was really dehibilitating until seeing the chiro. Prior to this, pt was walking 2 miles a day to walk dog and go to the beach. Pt is in a car a lot and having to walk [place] the [place]. Work is currently working on a safety plan for her to return. She typically wears tennis shoes and wears a lot of shoe-boots (like jackie shoes). Feels like knee cap shifts, and that catches and is painful when this happens and brace helps this. Notes occ when turning, loses balance but unsure if that is dizzines or knee. has been doing some Youtube stroke rehab and has trouble w/EC balance. Pt's initial symptoms of stroke were paranoia, confusion, vision changes. Pt feels like it all resolved. Pt fell during CVA when she was concerned she was being followed and hid behind a tree and fell down a hill. New callus on lat foot around 5th met head on L. It is painful when first set on it and it feels like a pin and a really sharp pain. Prior Treatments and Tests Xray and US; wears brace( elastic sleeve) Treatment Goals Patient/Caregiver Goals Get back to normal walking ( improve gait pattern and return to 2 miles); Figure out if more is going on with knee and if she needs to see a specialist. PT-OP-C Subjective Start: 03/25/22 13:22 Freq: Status: Active Protocol: Document 04/07/22 14:37 AMB (Rec: 04/07/22 15:48 AMB [id number]) OP-PT Subjective Patient Comments Patient Comments Reports got two massages this weekend and that felt good. Worst thing is sitting on the couch and then trying to get back up. Was able to do hip exercise over the weekend. PT-OP-D Balance Start: 03/25/22 13:22 Freq: Status: Active Protocol: Document 03/26/22 13:00 [facility] (Rec: 03/26/22 14:23 [facility] [id number]) Balance Tests Single Limb Standing Single Limb- Right >30 sec EO, EC 2 sec Single Limb- Left >30 sec EO, EC 5sec PT-OP-F Manual Assessment Start: 03/26/22 14:23 Freq: Status: Active Protocol: Document 03/26/22 13:00 [facility] (Rec: 03/26/22 14:25 [facility] [id number]) Manual Assessments Soft Tissue Assessment Soft Tissue Mobility Assessment tenderness med patella region only Other Manual Assessments Other Manual Assessments B rear foot valgus and rotaion of R remure and tibia, bunion R, collapsed arches B, hyperextends in standin PT-OP-G Mobility & Gait Start: 03/25/22 13:22 Freq: Status: Active Protocol: Document 03/26/22 13:00 [facility] (Rec: 03/26/22 14:23 [facility] [id number]) OP Gait Assessment Comments Gait Comments Adducts B and inc pronation B PT-OP-J Posture/Palpation/Skin Start: 03/25/22 13:22 Freq: Status: Active Protocol: Document 03/26/22 13:00 [facility] (Rec: 03/26/22 14:23 [facility] [id number]) Posture Evaluation [facility] Postural Classification System Lumbar Protective Mechanism Left AP 1 Lumbar Protective Mechanism Right AP 3 Lumbar Protective Mechanism Left PA 2 Lumbar Protective Mechanism Right PA 2 PT-OP-K Range of Motion Start: 03/26/22 14:23 Freq: Status: Active Protocol: Document 03/26/22 13:00 [facility] (Rec: 03/26/22 14:25 [facility] [id number]) Knee Goniometric Range of Motion Knee Right Flexion Active (degrees) 140 Extension Active (degrees) 0 Comments tight w/flex Left Flexion Active (degrees) 142 Hyper-Extension Active 4 PT-OP-L Special Tests Start: 03/25/22 13:22 Freq: Status: Active Protocol: Document 03/26/22 13:00 [facility] (Rec: 03/26/22 14:23 [facility] [id number]) Special Tests Knee Special Tests Hughston Pica Test Test Results R positive for pain-not notable for clicking though Straight Leg Raise Test Results 95 deg L, 92 R Preston Test Results WNL B Susan's Test Test Results neg R Cornelius's Compression Test Results neg R Apley's Compression Test Results neg R Thessaly Test 20 Degrees Test Results didn't hurt-but feels weak like it could click out Carlos Test Test Results neg R Rich Chondromalacia Test Results no pain w/ext Todd's Test Results neg R Posterior Draw Test Results neg R Varus- 25 Degrees Test Results neg R Valgus- 25 Degrees Test Results neg R PT-OP-M Strength Start: 03/25/22 13:22 Freq: Status: Active Protocol: Document 03/26/22 13:00 [facility] (Rec: 03/26/22 14:23 [facility] [id number]) Hip Strength Hip Manual Muscle Testing Right Flexion (L2) 4- Good- Extension (S1) 4 Good Abduction 4 Good Adduction 4 Good External Rotation 4- Good- Internal Rotation 4+ Good+ Comments pain IR Left Flexion (L2) 4- Good- Extension (S1) 4 Good Abduction 4 Good Adduction 5 Normal External Rotation 4- Good- Internal Rotation 4+ Good+ Knee Strength Knee Manual Muscle Testing Right Flexion (S2) 5 Normal Extension (L3) 4 Good Left Flexion (S2) 5 Normal Extension (L3) 4 Good Ankle/Foot Strength Ankle and Foot Manual Muscle Testing Right Dorsiflexion (L4) 5 Normal Plantarflexion (S1) 5 Normal Comments more difficult but abl eto do 20 heel raises Left Dorsiflexion (L4) 5 Normal Plantarflexion (S1) 5 Normal Comments 20 heel raises B PT-OP-Q Treatments Start: 03/25/22 13:22 Freq: Status: Active Protocol: Document 04/07/22 14:37 AMB (Rec: 04/07/22 15:48 AMB [id number]) Cardio Equipment Recumbent Bicycle Duration (Minutes) 6 Resistance 5 Seat Position 2 Therapeutic Exercises Supine Exercises bridge Supine Exercise Name w/alt march-cues for pelvis level Side bilateral Reps/Minutes 10 ea (after 3 bridge neutral) Sidelying Exercises Abductor Side bilateral Reps/Minutes 2x10 Comments better form Adductor Side bilateral Reps/Minutes 2x10 Comments better form Standing Exercises Valgus control Standing Exercise Name step forward with L leg, engage R glutes Resistance #4 t band at R ankle pulling medial Reps/Minutes 2x10 mini squat Side bilateral Reps/Minutes 15 Comments at bar cues for knee and back position sidestep Side bilateral Equipment Used yellow Reps/Minutes 20ft ea Manual Therapy Treatment Soft Tissue Mobilization adductors Body Location R Mobilization Type Rolling Intensity/Depth Moderate medial knee Mobilization Type Cross-Friction,Rolling Intensity/Depth Moderate Body Position Hooklying Taping 1 Body Location Medial knee Type of Tape Kinesio Tape Comments 3 Y strips around patella PT-OP-T Assessment and Plan Start: 03/25/22 13:22 Freq: Status: Active Protocol: Document 04/07/22 14:37 AMB (Rec: 04/07/22 15:48 AMB [id number]) Physical Therapy Assessment Goals activity [employer] Polisher Apprentice Goal (LTG) Pt will be able to stand comfortably after sitting for long periods and w/squatting LTG Duration 05/21 strength Short Term Goal (STG) Pt will be indep w/HEP STG Duration 04/26 Granite Polisher Apprentice Goal (LTG) Pt will score at lest 3/5 LPm and 5/5 on all LE MMT to show imrpoved strengtha nd stability in order to dec instance of pain. LTG Duration 05/21 walking Short Term Goal (STG) Pt will be able to inc walking to 1 mile w/o inc pain. STG Duration 04/26 [facility] Goal (LTG) Pt will be able her typical 2 mile walks and walk on uneven surfaces LTG Duration 05/21 Assessment Summary Assessment Pt form improving, challenged with mini squats with less UE support. Continued to encourage that strengthening is an appropriate intervention at this point in the healing process. Physical Therapy Plan Next Visit Focus/Plan Next Note Type Treatment Note Next Visit Plan KT tape again, review exercise , manual for dec knee pain
--- NOTE | 2022-04-15 21:45 | PT.OTN ---
Current Diagnoses Pain in right knee (04/15/22) Other symptoms and signs involving the musculoskeletal system (04/15/22) Physical Therapy Treatment Note PT-OP-A Visit Information Start: 03/25/22 13:22 Freq: Status: Active Protocol: Document 04/15/22 13:52 AMB (Rec: 04/15/22 14:39 AMB [id number]) Out-Patient Physical Therapy Visit Information Visit Information Visit Type Treatment Note Visit Start Time 13:45 Visit Stop Time 14:30 Total Visit Minutes 45 Visit Number 5 PT-OP-B Current Condition Start: 03/25/22 13:22 Freq: Status: Active Protocol: Document 03/26/22 13:00 LR (Rec: 03/26/22 14:23 [facility] [id number]) Current Condition History of Current Condition Onset Date October Current Complaints R knee History of Current Condition Pt had a mild stroke in October ( notes it was mild). She had an injury to her R Knee after falling donw a hill in [place] when having the stroke. They did Xrays and US and nothing looks broken, but it was swollen and she had difficulty wt bearing for a month. It started acting up more the past couple days. It throws off her gait. It seems best when she walks. She walks 5x/ week on the beach [place] .25 mile and tried 2 miles but her knee gets more painful. Denies any lingering affects from the stroke. She saw [employer] for eval and was DC. Pt was diagnosed w/vertigo 4-5 years ago and did PT and did self leila at home to maintain. Since CVA, she has had inc dizziness and when seh bends over or occ when rolling in bed. She has tried her self maneuver and it has helped. She has bunions on her feet and has history of surgery of L foot. She has had some knee pain in R knee prior to this. R bunion isn't painful. Pt has diagnosis of fibromyalgia and has pain in upper back and does chiro, massage and stretching by the ocean and that all helps a lot. It was really dehibilitating until seeing the chiro. Prior to this, pt was walking 2 miles a day to walk dog and go to the beach. Pt is in a car a lot and [place] Work is currently working on a safety plan for her to return. She typically wears tennis shoes and wears a lot of shoe-boots (like jackie shoes). Feels like knee cap shifts, and that catches and is painful when this happens and brace helps this. Notes occ when turning, loses balance but unsure if that is dizzines or knee. has been doing some Youtube stroke rehab and has trouble w/EC balance. Pt's initial symptoms of stroke were paranoia, confusion, vision changes. Pt feels like it all resolved. Pt fell during CVA when she was concerned she was being followed and hid behind a tree and fell down a hill. New callus on lat foot around 5th met head on L. It is painful when first set on it and it feels like a pin and a really sharp pain. Prior Treatments and Tests Xray and US; wears brace( elastic sleeve) Treatment Goals Patient/Caregiver Goals Get back to normal walking ( improve gait pattern and return to 2 miles); Figure out if more is going on with knee and if she needs to see a specialist. PT-OP-C Subjective Start: 03/25/22 13:22 Freq: Status: Active Protocol: Document 04/15/22 13:52 AMB (Rec: 04/15/22 14:39 [facility] [id number]) OP-PT Subjective Patient Comments Patient Comments Feeling a little better PT-OP-D Balance Start: 03/25/22 13:22 Freq: Status: Active Protocol: Document 03/26/22 13:00 [facility] (Rec: 03/26/22 14:23 [facility] [id number]) Balance Tests Single Limb Standing Single Limb- Right >30 sec EO, EC 2 sec Single Limb- Left >30 sec EO, EC 5sec PT-OP-F Manual Assessment Start: 03/26/22 14:23 Freq: Status: Active Protocol: Document 03/26/22 13:00 [facility] (Rec: 03/26/22 14:25 [facility] [id number]) Manual Assessments Soft Tissue Assessment Soft Tissue Mobility Assessment tenderness med patella region only Other Manual Assessments Other Manual Assessments B rear foot valgus and rotaion of R remure and tibia, bunion R, collapsed arches B, hyperextends in standin PT-OP-G Mobility & Gait Start: 03/25/22 13:22 Freq: Status: Active Protocol: Document 03/26/22 13:00 [facility] (Rec: 03/26/22 14:23 [facility] [id number]) OP Gait Assessment Comments Gait Comments Adducts B and inc pronation B PT-OP-J Posture/Palpation/Skin Start: 03/25/22 13:22 Freq: Status: Active Protocol: Document 03/26/22 13:00 [facility] (Rec: 03/26/22 14:23 [facility] [id number]) Posture Evaluation Donnie Postural Classification System Lumbar Protective Mechanism Left AP 1 Lumbar Protective Mechanism Right AP 3 Lumbar Protective Mechanism Left PA 2 Lumbar Protective Mechanism Right PA 2 PT-OP-K Range of Motion Start: 03/26/22 14:23 Freq: Status: Active Protocol: Document 03/26/22 13:00 [facility] (Rec: 03/26/22 14:25 [facility] [id number]) Knee Goniometric Range of Motion Knee Right Flexion Active (degrees) 140 Extension Active (degrees) 0 Comments tight w/flex Left Flexion Active (degrees) 142 Hyper-Extension Active 4 PT-OP-L Special Tests Start: 03/25/22 13:22 Freq: Status: Active Protocol: Document 03/26/22 13:00 [facility] (Rec: 03/26/22 14:23 [facility] [id number]) Special Tests Knee Special Tests Hughston Pica Test Test Results R positive for pain-not notable for clicking though Straight Leg Raise Test Results 95 deg L, 92 R Preston Test Results WNL B Susan's Test Test Results neg R Cornelius's Compression Test Results neg R Apley's Compression Test Results neg R Thessaly Test 20 Degrees Test Results didn't hurt-but feels weak like it could click out Carlos Test Test Results neg R Rich Chondromalacia Test Results no pain w/ext Todd's Test Results neg R Posterior Draw Test Results neg R Varus- 25 Degrees Test Results neg R Valgus- 25 Degrees Test Results neg R PT-OP-M Strength Start: 03/25/22 13:22 Freq: Status: Active Protocol: Document 03/26/22 13:00 [facility] (Rec: 03/26/22 14:23 [facility] [id number]) Hip Strength Hip Manual Muscle Testing Right Flexion (L2) 4- Good- Extension (S1) 4 Good Abduction 4 Good Adduction 4 Good External Rotation 4- Good- Internal Rotation 4+ Good+ Comments pain IR Left Flexion (L2) 4- Good- Extension (S1) 4 Good Abduction 4 Good Adduction 5 Normal External Rotation 4- Good- Internal Rotation 4+ Good+ Knee Strength Knee Manual Muscle Testing Right Flexion (S2) 5 Normal Extension (L3) 4 Good Left Flexion (S2) 5 Normal Extension (L3) 4 Good Ankle/Foot Strength Ankle and Foot Manual Muscle Testing Right Dorsiflexion (L4) 5 Normal Plantarflexion (S1) 5 Normal Comments more difficult but abl eto do 20 heel raises Left Dorsiflexion (L4) 5 Normal Plantarflexion (S1) 5 Normal Comments 20 heel raises B PT-OP-Q Treatments Start: 03/25/22 13:22 Freq: Status: Active Protocol: Document 04/15/22 13:45 AMB (Rec: 04/15/22 21:42 AMB [id number]) Cardio Equipment Recumbent Bicycle Duration (Minutes) 6 Resistance 5 Seat Position 2 Therapeutic Exercises Standing Exercises step up Standing Exercise Name 4then 8 forward Side right Reps/Minutes 10 Comments focus on alignment mini squat Side bilateral Reps/Minutes 15 Comments picking up 5# in crate Other Exercises cat cow Other Exercise Name to work on comfort with kneeling Reps/Minutes 10 UE flex in quadruped Reps/Minutes 10 Comments hold on to weights for neutral wrist harry pose Comments fully flexed knee is uncomfortable downward dog Reps/Minutes 3 Manual Therapy Treatment Taping 1 Body Location Medial knee Type of Tape Kinesio Tape Comments 3 Y strips around patella PT-OP-T Assessment and Plan Start: 03/25/22 13:22 Freq: Status: Active Protocol: Document 04/15/22 13:52 AMB (Rec: 04/15/22 14:39 AMB [id number]) Physical Therapy Assessment Goals activity Retanned Leather Roller Goal (LTG) Pt will be able to stand comfortably after sitting for long periods and w/squatting LTG Duration 05/21 strength Short Term Goal (STG) Pt will be indep w/HEP STG Duration 04/26 Shelter Goal (LTG) Pt will score at lest 3/5 LPm and 5/5 on all LE MMT to show imrpoved strengtha nd stability in order to dec instance of pain. LTG Duration 05/21 walking Short Term Goal (STG) Pt will be able to inc walking to 1 mile w/o inc pain. STG Duration 04/26 Shelter Goal (LTG) Pt will be able her typical 2 mile walks and walk on uneven surfaces LTG Duration 05/21 Assessment Summary Assessment Pt tolerated step ups and quadruped activities well. [place] like having an item to apple picker helped with squats, did feel discomfort when hips back on heels with extreme knee flex. Continued with kinesiotape for stability/pt request. Physical Therapy Plan Frequency and Duration Frequency of Treatment 1-2x/week Duration of treatment (weeks) 8 Plan of Care Start Date 03/26/22 Plan of Care End Date 05/21/22 Next Visit Focus/Plan Next Note Type Treatment Note Next Visit Plan KT tape again, review exercise , manual for dec knee pain, progress weightbearing exercises and return to yoga
--- NOTE | 2022-04-18 16:00 | PT.OTN ---
Current Diagnoses Pain in right knee (04/18/22) Other symptoms and signs involving the musculoskeletal system (04/18/22) Physical Therapy Treatment Note PT-OP-A Visit Information Start: 03/25/22 13:22 Freq: Status: Active Protocol: Document 04/18/22 14:35 AMB (Rec: 04/18/22 15:31 AMB [id number]) Out-Patient Physical Therapy Visit Information Visit Information Visit Type Treatment Note Visit Start Time 14:30 Visit Stop Time 15:15 Total Visit Minutes 45 Visit Number 6 PT-OP-B Current Condition Start: 03/25/22 13:22 Freq: Status: Active Protocol: Document 03/26/22 13:00 [facility] (Rec: 03/26/22 14:23 [facility] [id number]) Current Condition History of Current Condition Onset Date October Current Complaints R knee History of Current Condition Pt had a mild stroke in October ( notes it was mild). She had an injury to her R Knee after falling donw a hill in [place] when having the stroke. They did Xrays and US and nothing looks broken, but it was swollen and she had difficulty wt bearing for a month. It started acting up more the past couple days. It throws off her gait. It seems best when she walks. [place] 5x/ week on the beach [place] .25 mile and tried 2 miles but her knee gets more painful. Denies any lingering affects from the stroke. She saw RESEARCH CHIEF ENGINEER for eval and was DC. Pt was diagnosed w/vertigo 4-5 years ago and did PT and did self leila at home to maintain. Since CVA, she has had inc dizziness and when seh bends over or occ when rolling in bed. She has tried her self maneuver and it has helped. She has bunions on her feet and has history of surgery of L foot. She has had some knee pain in R knee prior to this. R bunion isn't painful. Pt has diagnosis of fibromyalgia and has pain in upper back and does chiro, massage and stretching by the ocean and that all helps a lot. It was really dehibilitating until seeing the chiro. Prior to this, pt was walking 2 miles a day to walk dog and go to the beach. Pt is in a car a lot and having [place] walk [place] the [place]. Work is currently working on a safety plan for her to return. She typically wears tennis shoes and wears a lot of shoe-boots (like jackie shoes). Feels like knee cap shifts, and that catches and is painful when this happens and brace helps this. Notes occ when turning, loses balance but unsure if that is dizzines or knee. has been doing some Youtube stroke rehab and has trouble w/EC balance. Pt's initial symptoms of stroke were paranoia, confusion, vision changes. Pt feels like it all resolved. Pt fell during CVA when she was concerned she was being followed and hid behind a tree and fell down a hill. New callus on lat foot around 5th met head on L. It is painful when first set on it and it feels like a pin and a really sharp pain. Prior Treatments and Tests Xray and US; wears brace( elastic sleeve) Treatment Goals Patient/Caregiver Goals Get back to normal walking ( improve gait pattern and return to 2 miles); Figure out if more is going on with knee and if she needs to see a specialist. PT-OP-C Subjective Start: 03/25/22 13:22 Freq: Status: Active Protocol: Document 04/18/22 14:35 AMB (Rec: 04/18/22 15:31 AMB [id number]) OP-PT Subjective Patient Comments Patient Comments Feels like the tape is helping . Continues to feel the knee with walking on the beach and long car rides increase stiffness. PT-OP-D Balance Start: 03/25/22 13:22 Freq: Status: Active Protocol: Document 03/26/22 13:00 [facility] (Rec: 03/26/22 14:23 [facility] [id number]) Balance Tests Single Limb Standing Single Limb- Right >30 sec EO, EC 2 sec Single Limb- Left >30 sec EO, EC 5sec PT-OP-F Manual Assessment Start: 03/26/22 14:23 Freq: Status: Active Protocol: Document 03/26/22 13:00 [facility] (Rec: 03/26/22 14:25 [facility] [id number]) Manual Assessments Soft Tissue Assessment Soft Tissue Mobility Assessment tenderness med patella region only Other Manual Assessments Other Manual Assessments B rear foot valgus and rotaion of R remure and tibia, bunion R, collapsed arches B, hyperextends in standin PT-OP-G Mobility & Gait Start: 03/25/22 13:22 Freq: Status: Active Protocol: Document 03/26/22 13:00 [facility] (Rec: 03/26/22 14:23 [facility] [id number]) OP Gait Assessment Comments Gait Comments Adducts B and inc pronation B PT-OP-J Posture/Palpation/Skin Start: 03/25/22 13:22 Freq: Status: Active Protocol: Document 03/26/22 13:00 [facility] (Rec: 03/26/22 14:23 [facility] [id number]) Posture Evaluation [facility] Postural Classification System Lumbar Protective Mechanism Left AP 1 Lumbar Protective Mechanism Right AP 3 Lumbar Protective Mechanism Left PA 2 Lumbar Protective Mechanism Right PA 2 PT-OP-K Range of Motion Start: 03/26/22 14:23 Freq: Status: Active Protocol: Document 03/26/22 13:00 [facility] (Rec: 03/26/22 14:25 [facility] [id number]) Knee Goniometric Range of Motion Knee Right Flexion Active (degrees) 140 Extension Active (degrees) 0 Comments tight w/flex Left Flexion Active (degrees) 142 Hyper-Extension Active 4 PT-OP-L Special Tests Start: 03/25/22 13:22 Freq: Status: Active Protocol: Document 03/26/22 13:00 [facility] (Rec: 03/26/22 14:23 [facility] [id number]) Special Tests Knee Special Tests Hughston Pica Test Test Results R positive for pain-not notable for clicking though Straight Leg Raise Test Results 95 deg L, 92 R Preston Test Results WNL B Susan's Test Test Results neg R Cornelius's Compression Test Results neg R Apley's Compression Test Results neg R Thessaly Test 20 Degrees Test Results didn't hurt-but feels weak like it could click out Carlos Test Test Results neg R Rich Chondromalacia Test Results no pain w/ext Todd's Test Results neg R Posterior Draw Test Results neg R Varus- 25 Degrees Test Results neg R Valgus- 25 Degrees Test Results neg R PT-OP-M Strength Start: 03/25/22 13:22 Freq: Status: Active Protocol: Document 03/26/22 13:00 [facility] (Rec: 03/26/22 14:23 [facility] [id number]) Hip Strength Hip Manual Muscle Testing Right Flexion (L2) 4- Good- Extension (S1) 4 Good Abduction 4 Good Adduction 4 Good External Rotation 4- Good- Internal Rotation 4+ Good+ Comments pain IR Left Flexion (L2) 4- Good- Extension (S1) 4 Good Abduction 4 Good Adduction 5 Normal External Rotation 4- Good- Internal Rotation 4+ Good+ Knee Strength Knee Manual Muscle Testing Right Flexion (S2) 5 Normal Extension (L3) 4 Good Left Flexion (S2) 5 Normal Extension (L3) 4 Good Ankle/Foot Strength Ankle and Foot Manual Muscle Testing Right Dorsiflexion (L4) 5 Normal Plantarflexion (S1) 5 Normal Comments more difficult but abl eto do 20 heel raises Left Dorsiflexion (L4) 5 Normal Plantarflexion (S1) 5 Normal Comments 20 heel raises B PT-OP-Q Treatments Start: 03/25/22 13:22 Freq: Status: Active Protocol: Document 04/18/22 14:30 AMB (Rec: 04/20/22 20:33 AMB [id number]) Cardio Equipment Recumbent Bicycle Duration (Minutes) 6 Resistance 5 Seat Position 2 Gym Equipment Shuttle Recovery Unilateral Squats Details R Resistance 62 Shuttle Recovery Platform Stable Reps/Time x15 Therapeutic Exercises Supine Exercises quad/ hip flexor stretch Supine Exercise Name off table Side right Reps/Minutes 30x2 Standing Exercises forward mini lunge Standing Exercise Name at railing Reps/Minutes 10'x6 Comments focus on form, alignment step up Standing Exercise Name 4then 8 forward Side right Reps/Minutes 10 Comments focus on alignment mini squat Side bilateral Reps/Minutes 15 Comments picking up 5# in crate Other Exercises cat cow Other Exercise Name to work on comfort with kneeling Reps/Minutes 10 UE flex in quadruped Reps/Minutes 10 Comments hold on to weights for neutral wrist Manual Therapy Treatment Soft Tissue Mobilization medial knee Mobilization Type Cross-Friction,Rolling Intensity/Depth Moderate Body Position Hooklying Joint Mobilizations Tibiofemoral Grade III Comments PA PT-OP-T Assessment and Plan Start: 03/25/22 13:22 Freq: Status: Active Protocol: Document 04/18/22 14:35 AMB (Rec: 04/18/22 15:31 AMB [id number]) Physical Therapy Assessment Goals activity Malt Loader Goal (LTG) Pt will be able to stand comfortably after sitting for long periods and w/squatting LTG Duration 12/7 strength Short Term Goal (STG) Pt will be indep w/HEP STG Duration 04/26 Malt Loader Goal (LTG) Pt will score at lest 3/5 LPm and 5/5 on all LE MMT to show imrpoved strengtha nd stability in order to dec instance of pain. LTG Duration 05/21 walking Short Term Goal (STG) Pt will be able to inc walking to 1 mile w/o inc pain. STG Duration 04/26 [facility] Goal (LTG) Pt will be able her typical 2 mile walks and walk on uneven surfaces LTG Duration 05/21 Assessment Summary Assessment Pt's walking on solid surface is going well, walking on sand still problematic. Long car rides increase stiffness. Pt verbalizes less anxiety related to something structurally being abnormal with knee, but would still like to work on stiffness as this will be difficult with return to work. Physical Therapy Plan Frequency and Duration Frequency of Treatment 1-2x/week Duration of treatment (weeks) 8 Plan of Care Start Date 03/26/22 Plan of Care End Date 05/21/22 Therapeutic Interventions Therapeutic Interventions Aquatic Therapy,Balance Training,Gait Training,Home Exercise Program,Joint Mobilizations,Manual Therapy, Neuromuscular Re-education, Patient/Caregiver Education, Self-Care/Home Management,Soft Tissue Mobilization,Taping, Therapeutic Activities, Therapeutic Exercises, Vestibular Rehabilitation Modalities Cold Pack/Ice Massage,Electric Stimulation,Hot Packs, Infrared Therapy,Ultrasound Next Visit Focus/Plan Next Note Type Treatment Note Next Visit Plan KT tape again, review exercise , manual for dec knee pain, progress weightbearing exercises and return to yoga
--- NOTE | 2022-04-30 15:35 | PT.OTN ---
Current Diagnoses Pain in right knee (04/30/22) Other symptoms and signs involving the musculoskeletal system (04/30/22) Physical Therapy Treatment Note PT-OP-A Visit Information Start: 03/25/22 13:22 Freq: Status: Active Protocol: Document 04/30/22 14:32 AMB (Rec: 04/30/22 14:59 AMB [id number]) Out-Patient Physical Therapy Visit Information Visit Information Visit Type Treatment Note Visit Start Time 14:30 Visit Stop Time 15:15 Total Visit Minutes 45 Visit Number 7 PT-OP-B Current Condition Start: 03/25/22 13:22 Freq: Status: Active Protocol: Document 03/26/22 13:00 [facility] (Rec: 03/26/22 14:23 [facility] [id number]) Current Condition History of Current Condition Onset Date October Current Complaints R knee History of Current Condition Pt had a mild stroke in October ( notes it was mild). She had an injury to her R Knee after falling donw a hill in [place] when having the stroke. They did Xrays and US and nothing looks broken, but it was swollen and she had difficulty wt bearing for a month. It started acting up more the past couple days. It throws off her gait. It seems best when she walks. She walks 5x/ week on the beach [place] .25 mile and tried 2 miles but her knee gets more painful. Denies any lingering affects from the stroke. She saw SIGHTER for eval and was DC. Pt was diagnosed w/vertigo 4-5 years ago and did PT and did self leila at home to maintain. Since CVA, she has had inc dizziness and when seh bends over or occ when rolling in bed. She has tried her self maneuver and it has helped. She has bunions on her feet and has history of surgery of L foot. She has had some knee pain in R knee prior to this. R bunion isn't painful. Pt has diagnosis of fibromyalgia and has pain in upper back and does chiro, massage and stretching by the ocean and that all helps a lot. It was really dehibilitating until seeing the chiro. Prior to this, pt was walking 2 miles a day to walk dog and go to the beach. Pt is in a car a lot and [place] Work is currently working on a safety plan for her to return. She typically wears tennis shoes and wears a lot of shoe-boots (like jackie shoes). Feels like knee cap shifts, and that catches and is painful when this happens and brace helps this. Notes occ when turning, loses balance but unsure if that is dizzines or knee. has been doing some Youtube stroke rehab and has trouble w/EC balance. Pt's initial symptoms of stroke were paranoia, confusion, vision changes. Pt feels like it all resolved. Pt fell during CVA when she was concerned she was being followed and hid behind a tree and fell down a hill. New callus on lat foot around 5th met head on L. It is painful when first set on it and it feels like a pin and a really sharp pain. Prior Treatments and Tests Xray and US; wears brace( elastic sleeve) Treatment Goals Patient/Caregiver Goals Get back to normal walking ( improve gait pattern and return to 2 miles); Figure out if more is going on with knee and if she needs to see a specialist. PT-OP-C Subjective Start: 03/25/22 13:22 Freq: Status: Active Protocol: Document 04/30/22 14:32 AMB (Rec: 04/30/22 14:59 AMB [id number]) OP-PT Subjective Patient Comments Patient Comments Pt returns from [place] extended car ride PT-OP-D Balance Start: 03/25/22 13:22 Freq: Status: Active Protocol: Document 03/26/22 13:00 [facility] (Rec: 03/26/22 14:23 [facility] [id number]) Balance Tests Single Limb Standing Single Limb- Right >30 sec EO, EC 2 sec Single Limb- Left >30 sec EO, EC 5sec PT-OP-F Manual Assessment Start: 03/26/22 14:23 Freq: Status: Active Protocol: Document 03/26/22 13:00 [facility] (Rec: 03/26/22 14:25 [facility] [id number]) Manual Assessments Soft Tissue Assessment Soft Tissue Mobility Assessment tenderness med patella region only Other Manual Assessments Other Manual Assessments B rear foot valgus and rotaion of R remure and tibia, bunion R, collapsed arches B, hyperextends in standin PT-OP-G Mobility & Gait Start: 03/25/22 13:22 Freq: Status: Active Protocol: Document 03/26/22 13:00 [facility] (Rec: 03/26/22 14:23 [facility] [id number]) OP Gait Assessment Comments Gait Comments Adducts B and inc pronation B PT-OP-J Posture/Palpation/Skin Start: 03/25/22 13:22 Freq: Status: Active Protocol: Document 03/26/22 13:00 [facility] (Rec: 03/26/22 14:23 [facility] [id number]) Posture Evaluation [facility] Postural Classification System Lumbar Protective Mechanism Left AP 1 Lumbar Protective Mechanism Right AP 3 Lumbar Protective Mechanism Left PA 2 Lumbar Protective Mechanism Right PA 2 PT-OP-K Range of Motion Start: 03/26/22 14:23 Freq: Status: Active Protocol: Document 03/26/22 13:00 [facility] (Rec: 03/26/22 14:25 [facility] [id number]) Knee Goniometric Range of Motion Knee Right Flexion Active (degrees) 140 Extension Active (degrees) 0 Comments tight w/flex Left Flexion Active (degrees) 142 Hyper-Extension Active 4 PT-OP-L Special Tests Start: 03/25/22 13:22 Freq: Status: Active Protocol: Document 03/26/22 13:00 [facility] (Rec: 03/26/22 14:23 [facility] [id number]) Special Tests Knee Special Tests Hughston Pica Test Test Results R positive for pain-not notable for clicking though Straight Leg Raise Test Results 95 deg L, 92 R Preston Test Results WNL B Susan's Test Test Results neg R Cornelius's Compression Test Results neg R Apley's Compression Test Results neg R Thessaly Test 20 Degrees Test Results didn't hurt-but feels weak like it could click out Carlos Test Test Results neg R Rich Chondromalacia Test Results no pain w/ext Todd's Test Results neg R Posterior Draw Test Results neg R Varus- 25 Degrees Test Results neg R Valgus- 25 Degrees Test Results neg R PT-OP-M Strength Start: 03/25/22 13:22 Freq: Status: Active Protocol: Document 03/26/22 13:00 [facility] (Rec: 03/26/22 14:23 [facility] [id number]) Hip Strength Hip Manual Muscle Testing Right Flexion (L2) 4- Good- Extension (S1) 4 Good Abduction 4 Good Adduction 4 Good External Rotation 4- Good- Internal Rotation 4+ Good+ Comments pain IR Left Flexion (L2) 4- Good- Extension (S1) 4 Good Abduction 4 Good Adduction 5 Normal External Rotation 4- Good- Internal Rotation 4+ Good+ Knee Strength Knee Manual Muscle Testing Right Flexion (S2) 5 Normal Extension (L3) 4 Good Left Flexion (S2) 5 Normal Extension (L3) 4 Good Ankle/Foot Strength Ankle and Foot Manual Muscle Testing Right Dorsiflexion (L4) 5 Normal Plantarflexion (S1) 5 Normal Comments more difficult but abl eto do 20 heel raises Left Dorsiflexion (L4) 5 Normal Plantarflexion (S1) 5 Normal Comments 20 heel raises B PT-OP-Q Treatments Start: 03/25/22 13:22 Freq: Status: Active Protocol: Document 04/30/22 14:32 AMB (Rec: 04/30/22 14:59 AMB [id number]) Cardio Equipment Recumbent Bicycle Duration (Minutes) 7 Resistance 5 Seat Position 2 Gym Equipment Shuttle Recovery Unilateral Squats Details R Resistance 62 Shuttle Recovery Platform Stable Reps/Time x15 Therapeutic Exercises Standing Exercises forward mini lunge Standing Exercise Name at railing Reps/Minutes 10'x6 Comments focus on form, alignment step up Standing Exercise Name 4then 8 forward Side right Reps/Minutes 2x10 Comments focus on glut engagement mini squat Side bilateral Reps/Minutes 15 Comments picking up 5# in crate Manual Therapy Treatment Taping 1 Body Location Medial knee Type of Tape Kinesio Tape Comments 3 Y strips around patella PT-OP-T Assessment and Plan Start: 03/25/22 13:22 Freq: Status: Active Protocol: Document 04/30/22 14:32 AMB (Rec: 04/30/22 14:59 AMB [id number]) Physical Therapy Assessment Goals activity Taxonomist Goal (LTG) Pt will be able to stand comfortably after sitting for long periods and w/squatting LTG Duration 05/21 strength Short Term Goal (STG) Pt will be indep w/HEP STG Duration 04/26 Fpc Goal (LTG) Pt will score at lest 3/5 LPm and 5/5 on all LE MMT to show imrpoved strengtha nd stability in order to dec instance of pain. LTG Duration 05/21 walking Short Term Goal (STG) Pt will be able to inc walking to 1 mile w/o inc pain. STG Duration 04/26 Fpc Goal (LTG) Pt will be able her typical 2 mile walks and walk on uneven surfaces LTG Duration 05/21 Assessment Summary Assessment Pt to take photo of k tape so she can do independently, time spent instructing her on self taping as she does find it helpful. Encouraged in continued gluteal facilitation with activities to take pressure off of knee. Pt feels like knee is continuing to improve, but has not returned to work yet due to some paperwork issues. Physical Therapy Plan Frequency and Duration Frequency of Treatment 1-2x/week Duration of treatment (weeks) 8 Plan of Care Start Date 03/26/22 Plan of Care End Date 05/21/22 Therapeutic Interventions Therapeutic Interventions Aquatic Therapy,Balance Training,Gait Training,Home Exercise Program,Joint Mobilizations,Manual Therapy, Neuromuscular Re-education, Patient/Caregiver Education, Self-Care/Home Management,Soft Tissue Mobilization,Taping, Therapeutic Activities, Therapeutic Exercises, Vestibular Rehabilitation Modalities Cold Pack/Ice Massage,Electric Stimulation,Hot Packs, Infrared Therapy,Ultrasound Next Visit Focus/Plan Next Note Type Treatment Note Next Visit Plan KT tape again, review exercise , manual for dec knee pain, progress weightbearing exercises and return to yoga
--- NOTE | 2022-05-26 14:48 | PT-OP ANOTE ---
Pt no showed appt and was called and left message re: no show. Pt has no scheduled appts so informed to call back to schedule more appts or ask for DC depending on how she is doing.
--- NOTE | 2022-08-25 10:29 | PT.OPDS ---
Current Diagnoses Pain in right knee (04/30/22) Other symptoms and signs involving the musculoskeletal system (04/30/22) Visit Care Team Role Provider Type CARLI Sam Attending Provider Advanced Ballistic Expert Family Provider Primary Care Provider Referring Provider Specialty: Family Practice Address: [address] [place] [address], [id number] Email: [email or web address] Visit Number Visit Number 7 Discharge Summary PT-OP-B Current Condition Start: 03/25/22 13:22 Freq: Status: Active Protocol: Document 03/26/22 13:00 [facility] (Rec: 03/26/22 14:23 [facility] [id number]) Current Condition History of Current Condition Onset Date October Current Complaints R knee History of Current Condition Pt had a mild stroke in October ( notes it was mild). She had an injury to her R Knee after falling donw a hill in [place] when having the stroke. They did Xrays and US and nothing looks broken, but it was swollen and she had difficulty wt bearing for a month. It started acting up more the past couple days. It throws off her gait. It seems best when she walks. [place] 5x[place] .25 [place] and tried 2 miles but her knee gets more painful. Denies any lingering affects from the stroke. She saw [facility] for eval and was DC. Pt was diagnosed w/vertigo 4-5 years ago and did PT and did self leila at home to maintain. Since CVA, she has had inc dizziness and when seh bends over or occ when rolling in bed. She has tried her self maneuver and it has helped. She has bunions on her feet and has history of surgery of L foot. She has had some knee pain in R knee prior to this. R bunion isn't painful. Pt has diagnosis of fibromyalgia and has pain in upper back and does chiro, massage and stretching by the ocean and that all helps a lot. It was really dehibilitating until seeing the chiro. Prior to this, pt was walking 2 miles a day to walk dog and go to the beach. Pt is in a car a lot and having to walk in the [place]. Work is currently working on a safety plan for her to return. She typically wears tennis shoes and wears a lot of shoe-boots (like jackie shoes). Feels like knee cap shifts, and that catches and is painful when this happens and brace helps this. Notes occ when turning, loses balance but unsure if that is dizzines or knee. has been doing some [employer] stroke rehab and has trouble w/EC balance. Pt's initial symptoms of stroke were paranoia, confusion, vision changes. Pt feels like it all resolved. Pt fell during CVA when she was concerned she was being followed and hid behind a tree and fell down a hill. New callus on lat foot around 5th met head on L. It is painful when first set on it and it feels like a pin and a really sharp pain. Prior Treatments and Tests Xray and US; wears brace( elastic sleeve) Treatment Goals Patient/Caregiver Goals Get back to normal walking ( improve gait pattern and return to 2 miles); Figure out if more is going on with knee and if she needs to see a specialist. PT-OP-C Subjective Start: 03/25/22 13:22 Freq: Status: Active Protocol: Document 04/30/22 14:32 [facility] (Rec: 04/30/22 14:59 AMB [id number]) OP-PT Subjective Patient Comments Patient Comments Pt returns from [place] extended car ride PT-OP-D Balance Start: 03/25/22 13:22 Freq: Status: Active Protocol: Document 03/26/22 13:00 [facility] (Rec: 03/26/22 14:23 [facility] [id number]) Balance Tests Single Limb Standing Single Limb- Right >30 sec EO, EC 2 sec Single Limb- Left >30 sec EO, EC 5sec PT-OP-F Manual Assessment Start: 03/26/22 14:23 Freq: Status: Active Protocol: Document 03/26/22 13:00 [facility] (Rec: 03/26/22 14:25 [facility] [id number]) Manual Assessments Soft Tissue Assessment Soft Tissue Mobility Assessment tenderness med patella region only Other Manual Assessments Other Manual Assessments B rear foot valgus and rotaion of R remure and tibia, bunion R, collapsed arches B, hyperextends in standin PT-OP-G Mobility & Gait Start: 03/25/22 13:22 Freq: Status: Active Protocol: Document 03/26/22 13:00 [facility] (Rec: 03/26/22 14:23 [facility] [id number]) OP Gait Assessment Comments Gait Comments Adducts B and inc pronation B PT-OP-J Posture/Palpation/Skin Start: 03/25/22 13:22 Freq: Status: Active Protocol: Document 03/26/22 13:00 [facility] (Rec: 03/26/22 14:23 [facility] [id number]) Posture Evaluation [facility] Postural Classification System Lumbar Protective Mechanism Left AP 1 Lumbar Protective Mechanism Right AP 3 Lumbar Protective Mechanism Left PA 2 Lumbar Protective Mechanism Right PA 2 PT-OP-K Range of Motion Start: 03/26/22 14:23 Freq: Status: Active Protocol: Document 03/26/22 13:00 [facility] (Rec: 03/26/22 14:25 [facility] [id number]) Knee Goniometric Range of Motion Knee Right Flexion Active (degrees) 140 Extension Active (degrees) 0 Comments tight w/flex Left Flexion Active (degrees) 142 Hyper-Extension Active 4 PT-OP-L Special Tests Start: 03/25/22 13:22 Freq: Status: Active Protocol: Document 03/26/22 13:00 [facility] (Rec: 03/26/22 14:23 [facility] [id number]) Special Tests Knee Special Tests Hughston Pica Test Test Results R positive for pain-not notable for clicking though Straight Leg Raise Test Results 95 deg L, 92 R Preston Test Results WNL B Susan's Test Test Results neg R Cornelius's Compression Test Results neg R Apley's Compression Test Results neg R Thessaly Test 20 Degrees Test Results didn't hurt-but feels weak like it could click out Carlos Test Test Results neg R Rich Chondromalacia Test Results no pain w/ext Todd's Test Results neg R Posterior Draw Test Results neg R Varus- 25 Degrees Test Results neg R Valgus- 25 Degrees Test Results neg R PT-OP-M Strength Start: 03/25/22 13:22 Freq: Status: Active Protocol: Document 03/26/22 13:00 [facility] (Rec: 03/26/22 14:23 [facility] [id number]) Hip Strength Hip Manual Muscle Testing Right Flexion (L2) 4- Good- Extension (S1) 4 Good Abduction 4 Good Adduction 4 Good External Rotation 4- Good- Internal Rotation 4+ Good+ Comments pain IR Left Flexion (L2) 4- Good- Extension (S1) 4 Good Abduction 4 Good Adduction 5 Normal External Rotation 4- Good- Internal Rotation 4+ Good+ Knee Strength Knee Manual Muscle Testing Right Flexion (S2) 5 Normal Extension (L3) 4 Good Left Flexion (S2) 5 Normal Extension (L3) 4 Good Ankle/Foot Strength Ankle and Foot Manual Muscle Testing Right Dorsiflexion (L4) 5 Normal Plantarflexion (S1) 5 Normal Comments more difficult but abl eto do 20 heel raises Left Dorsiflexion (L4) 5 Normal Plantarflexion (S1) 5 Normal Comments 20 heel raises B PT-OP-T Assessment and Plan Start: 03/25/22 13:22 Freq: Status: Active Protocol: Document 08/25/22 10:27 [facility] (Rec: 08/25/22 10:29 [facility] [id number]) Physical Therapy Assessment Goals activity Intermediate Goal (LTG) Pt will be able to stand comfortably after sitting for long periods and w/squatting LTG Duration 05/21 strength Short Term Goal (STG) Pt will be indep w/HEP STG Duration 04/26 School Bus Driver Goal (LTG) Pt will score at lest 3/5 LPm and 5/5 on all LE MMT to show imrpoved strengtha nd stability in order to dec instance of pain. LTG Duration 05/21 walking Short Term Goal (STG) Pt will be able to inc walking to 1 mile w/o inc pain. STG Duration 04/26 School Bus Driver Goal (LTG) Pt will be able her typical 2 mile walks and walk on uneven surfaces LTG Duration 05/21 Assessment Summary Assessment Pt no showed last appt. She was calleda nd left message but did not call back to schedule further appts. DC d/t no longer attending PT. Pt's last appt was Apr 30 Physical Therapy Plan Discharge Physical Therapy Discharge Reasons No Longer Attending PT
== END 2022-08-25 12:30 | disposition home or self-care (01) ==
LOC: PHYS 14:30
PROVIDERS: Family Provider Nurse Practitioner; PCP Nurse Practitioner; Referring Provider Nurse Practitioner; Visit Provider Nurse Practitioner
DX: M25.561 Pain in right knee (principal); R29.898 Other symptoms and signs involving the musculoskeletal system
CPT/HCPCS: 97110; 97140; 97162; 97535

== ENCOUNTER → 2022-10-24 14:20 | Outpatient (CLI) | payer OTHER, SELFPAY ==
--- NOTE | 2022-10-24 14:22 | DI.MG.S_ITS ---
BILATERAL DIGITAL SCREENING MAMMOGRAM 3D/2D WITH CAD: 10/24/2022 CLINICAL: Baseline by default. No prior exams were available for comparison. There are scattered areas of fibroglandular density in both breasts (category b / 25%-50% glandular tissue). Current study was also evaluated with a Computer Aided Detection (CAD) system. No significant masses, calcifications, or other findings are seen in either breast. IMPRESSION: NEGATIVE There is no mammographic evidence of malignancy. A 1 year screening mammogram is recommended. Based on the Tyrer Cuzick model (a risk assessment model) the patient's lifetime risk is 6.1% and her 10 year risk is 2.0%. According to the ACR, ACS, and NCCN guidelines, an annual breast MRI exam along with mammogram is recommended if the patient's lifetime risk is 20% or greater. This exam was interpreted at Station ID: [id number]. NOTE: For mammograms, a report in lay terms will be sent to the patient. Approximately 15% of breast malignancies will not be visualized mammographically. In the management of a palpable breast mass, a negative mammogram must not discourage biopsy of a clinically suspicious lesion. Electronically Signed By: Cristine wheat/larisa:10/24/2022 16:21:23 letter sent: Normal Exam ACR BI-RADS Category 1: Negative [id number]
== END ==
PROVIDERS: Family Provider Nurse Practitioner; PCP Nurse Practitioner; Referring Provider Nurse Practitioner; Visit Provider Nurse Practitioner
DX: Z12.31 Encounter for screening mammogram for malignant neoplasm of breast (principal)
CPT/HCPCS: 77063; 77067

== ENCOUNTER → 2023-11-03 08:13 | Outpatient (CLI) | payer OTHER, SELFPAY ==
[2023-11-03 10:21] LABS: Add Manual Diff / Slide Review NO; Basophils Absolute Auto 100 /uL (0-100); Basophils Percent Auto 0.9 % (0-2); Eosinophils Absolute Auto 300 /uL (0-450); Hemoglobin 13.6 g/dL (12.0-16.0); Lymphocytes Absolute Auto 2200 /uL (1100-4500); Mean Corpuscular Hemoglobin 30.7 PG (26-34); Mean Corpuscular Volume 90.3 fL (80-100); Monocytes Absolute Auto 500 /uL (0-900); Monocytes Percent Auto 6.8 % (3-14); Neutrophils Absolute Auto 4000 /uL (1500-7000); Neutrophils Percent Auto 57.3 % (50-75); Platelet Count 389 X10^3/uL (150-400); Red Blood Cell Count 4.43 X10^6/uL (4.0-5.2); Red Cell Distribution Width 13.4 % (11.6-14.8)
[2023-11-03 10:23] LABS: Hemoglobin A1C% w Est Avg Glu 5.3 % (4.0-6.0)
[2023-11-03 11:01] LABS: Alanine Aminotransferase 26 IU/L (<35); Albumin 4.5 g/dL (3.5-5.0); Albumin Globulin Ratio 1.7 (1.0-2.8); Alkaline Phosphatase 76 U/L (38-126); Aspartate Aminotransferase 24 IU/L (14-36); BUN Creatinine Ratio 30.6 (6-22); Bilirubin Total 0.6 mg/dL (0.2-1.3); Blood Urea Nitrogen 15 mg/dL (7-17); Carbon Dioxide 26 mmol/L (22-32); Chloride 106 mmol/L (98-107); Cholesterol 183 mg/dL (140-199); Estimated Glomerular Filt Rate > 60 mL/min (>60); Globulin 2.6 g/dL (1.7-4.1); Glucose 104 mg/dL (70-100); HDL Cholesterol 79 mg/dL (40-60); HEMOLYSIS < 15 (0-50); LDL Cholesterol Calculated 83 mg/dL (<100); Sodium 139 mmol/L (137-145); Total Protein 7.1 g/dL (6.3-8.2); Triglycerides 104 mg/dL (35-150)
[2023-11-03 11:13] LABS: Free T3, Triiodothyronine Free 5.84 pg/mL (2.77-5.27); Free T4, Direct Thyroxine 0.97 ng/dL (0.78-2.19)
[2023-11-03 11:27] LABS: Thyroid Stimulating Hormone 0.877 uIU/mL (0.47-4.68)
== END ==
PROVIDERS: Family Provider Nurse Practitioner; PCP Nurse Practitioner; Referring Provider Nurse Practitioner; Visit Provider Nurse Practitioner
DX: Z00.00 Encounter for general adult medical examination without abnormal findings (principal)
CPT/HCPCS: 36415; 80053; 80061; 83036; 84439; 84443; 84481; 85025

== ENCOUNTER → 2024-06-06 14:40 | Outpatient (CLI) | payer OTHER, SELFPAY ==
[2024-06-06 17:06] LABS: COVID-19 CEPHEID 4-PLEX PCR POSITIVE (Negative); Influenza A - CEPHEID Flu A NEGATIVE (NEGATIVE); Influenza B - CEPHEID Flu B NEGATIVE (NEGATIVE); Respiratory Syncytial Virus Negative (Negative)
== END ==
PROVIDERS: Family Provider Nurse Practitioner; PCP Nurse Practitioner; Visit Provider Nurse Practitioner Family
DX: R05.1 Acute cough (principal)
CPT/HCPCS: 0241U

== ENCOUNTER → 2024-12-22 14:31 | Outpatient (CLI) | payer OTHER, SELFPAY ==
[2024-12-22 16:05] LABS: Blood Urea Nitrogen 17 mg/dL (7-17); Calcium 9.9 mg/dL (8.4-10.2); Carbon Dioxide 28 mmol/L (22-32); Chloride 102 mmol/L (98-107); Cholesterol 202 mg/dL (140-199); Estimated Glomerular Filt Rate > 60 mL/min (>60); Glucose 81 mg/dL (70-99); HDL Cholesterol 77 mg/dL (40-60); HEMOLYSIS < 15 (0-50); Potassium 4.9 mmol/L (3.4-5.1); Sodium 138 mmol/L (137-145); Triglycerides 208 mg/dL (35-150)
== END ==
PROVIDERS: Family Provider Nurse Practitioner; PCP Nurse Practitioner Family; Referring Provider Nurse Practitioner Family; Visit Provider Nurse Practitioner Family
DX: E78.2 Mixed hyperlipidemia (principal); F09 Unspecified mental disorder due to known physiological condition; S06.9X9S Unspecified intracranial injury with loss of consciousness of unspecified duration, sequela; G31.89 Other specified degenerative diseases of nervous system; Z86.73 Personal history of transient ischemic attack (TIA), and cerebral infarction without residual deficits
CPT/HCPCS: 36415; 80048; 80061